=== PATIENT | male | born 1965 | race Caucasian/White ===

== ENCOUNTER 2020-12-08 09:20 | Inpatient (IN) | payer OTHER ==
[~2020-12-08] VITALS: Ht 167.6 cm; Wt 91.6 kg
[2020-12-08] MEDS ORDERED: PIPERACILLIN/TAZOBACTAM 3.375 GM in SODIUM CHLORIDE 0.9% 50ML 50 ML IV ONE (09:45)
[2020-12-08] MEDS ORDERED: SODIUM CHLORIDE 0.9% 1000ML 1,000 ML IV STA ×2 (09:45→09:55)
[2020-12-08] MEDS ORDERED: MORPHINE SULFATE INJ 4 MG/ML INJ 1ML IV NR (09:45)
[2020-12-08] MEDS ORDERED: Vancomycin IV 1 GM in SODIUM CHLORIDE 0.9% 250ML 250 ML IV ONE (10:00)
[2020-12-08] MEDS ORDERED: ONDANSETRON HCL INJ 2MG/ML 2ML 2 MG/ML VIAL IV NR (10:00)
[2020-12-08 10:18] LABS: BASOPHILS # (AUTO) 0.1 (0.0-0.1); BASOPHILS % 0.4 % (0.0-1.0); EOSINOPHILS # (AUTO) 0.1 (0.0-0.4); EOSINOPHILS % 0.4 % (0.0-6.0); HEMATOCRIT 38.4 % (38.2-49.6); LYMPHOCYTES # (AUTO) 2.7 (1.0-3.2); LYMPHOCYTES % 8.7 % (18.0-39.1); MEAN CORPUSCULAR HEMOGLOBIN 30.1 pg (28-32); MEAN CORPUSCULAR HGB CONC 33.9 g/dL (31-35); MEAN CORPUSCULAR VOLUME 88.9 fL (81-99); MONOCYTES # (AUTO) 2.2 (0.2-0.8); MONOCYTES % 7.2 % (4.4-11.3); NEUTROPHILS # (AUTO) 24.8 (2.1-6.9); NEUTROPHILS % 81.5 % (38.7-80.0); PLATELET COUNT 486 x10e3/uL (140-360); RED BLOOD COUNT 4.32 x10e6/uL (4.3-5.7); RED CELL DISTRIBUTION WIDTH 11.2 % (11.7-14.4)
[2020-12-08 10:45] LABS: PROTHROMBIN TIME 13.8 seconds (11.9-14.5)
[2020-12-08 11:13] LABS: LYMPHOCYTES % (MANUAL) 10 % (19-48); MONOCYTES % (MANUAL) 7 % (3.4-9.0); MYELOCYTES % (MANUAL) 1 % (0-0); NEUTROPHILS % (MANUAL) 82 % (40-74); PLATELET ESTIMATE SLIGHTLY INCREASED
[2020-12-08 11:14] LABS: PLATELET MORPHOLOGY COMMENT FEW LARGE; RBC MORPHOLOGY COMMENT NORMAL
[2020-12-08 11:27] LABS: ALBUMIN 3.1 g/dL (3.5-5.0); ALBUMIN/GLOBULIN RATIO 0.7 (0.8-2.0); ANION GAP 13.6 mmol/L (8-16); CALCIUM 9.3 mg/dL (8.4-10.2); CREATININE, SERUM 0.81 mg/dL (0.72-1.25); MAGNESIUM 1.9 MG/DL (1.3-2.1); POTASSIUM 3.6 mmol/L (3.5-5.1)
[2020-12-08 11:35] LABS: CREATINE KINASE MB 1.6 ng/mL (0-5.0)
[2020-12-08] MEDS ORDERED: DEXTROSE 50% SYRINGE 50 ML IV PRN (11:45)
[2020-12-08] MEDS ORDERED: DEXAMETHASONE SOD PHOS INJ 4 MG/ML VIAL ONE (12:27)
[2020-12-08] MEDS ORDERED: PROPOFOL IV EMULSION 10 MG/ML 20 ML VIAL ONE (12:27)
[2020-12-08] MEDS ORDERED: SEVOFLURANE INHAL SOLN 250 ML PEN BTL ONE (12:27)
[2020-12-08] MEDS ORDERED: ONDANSETRON HCL INJ 2MG/ML 2ML 2 MG/ML VIAL ONE (12:27)
[2020-12-08] MEDS ORDERED: LIDOCAINE HCL 2% LOCAL INJ 5 ML SDV VIAL INJ ONE (12:27)
[2020-12-08] MEDS ORDERED: POVIDONE IODINE 0.05% 0.05 % ML PO ONE (12:27)
[2020-12-08] MEDS ORDERED: KETOROLAC TROMETHAMINE 30 MG/ML VIAL ONE (12:27)
[2020-12-08] MEDS ORDERED: MIDAZOLAM HCL 2 MG/2 ML VIAL ONE (13:17)
[2020-12-08] MEDS ORDERED: FENTANYL CITRATE/PF 100MCG/2 ML INJ ONE (13:17)
[2020-12-08] MEDS: MORPHINE SULFATE INJ 4 MG/ML INJ 1ML IV PRN (13:44)
[2020-12-08 13:50] VITALS: BP 157/80
[2020-12-08 13:58] VITALS: BP 157/89
[2020-12-08] MEDS ORDERED: HYDROGEN PEROXIDE 120 ML BTL ONE (15:52)
[2020-12-08] MEDS: INSULIN LISPRO 100 UNIT/1 ML 3ML VIAL SQ SCH ×2 (16:30→21:00)
[2020-12-08 16:55] VITALS: BP 163/86
[2020-12-08] MEDS: CLINDAMYCIN 600MG / 50ML 50 ML IV SCH ×2 (17:08→21:29)
[2020-12-08] MEDS: LACTATED RINGER'S 1,000 ML INJ SCH (17:08)
[2020-12-08] MEDS ORDERED: ULTRAM50 MG PO (17:18)
[2020-12-08] MEDS ORDERED: ATORVASTATIN CA20 MG PO (17:18)
[2020-12-08] MEDS ORDERED: GLIPIZIDE5 MG PO (17:18)
[2020-12-08] MEDS ORDERED: METFORMIN HCL500 MG PO (17:18)
[2020-12-08] MEDS ORDERED: LOSARTAN POTASS25 MG PO (17:18)
[2020-12-08] MEDS ORDERED: ACETAMINOPHEN 325 MG TAB PO PRN (17:30)
[2020-12-08 17:31] VITALS: BP 163/86
[2020-12-08] MEDS ORDERED: DOCUSATE SODIUM 100 MG CAP PO PRN (17:45)
[2020-12-08] MEDS: LOSARTAN POTASSIUM 25 MG TAB PO SCH (17:49)
[2020-12-08] MEDS: ONDANSETRON HCL INJ 2MG/ML 2ML 2 MG/ML VIAL IV PRN (17:49)
[2020-12-08] MEDS: PIPERACILLIN/TAZOBACTAM 3.375 GM in SODIUM CHLORIDE 0.9% 50ML 50 ML IV SCH (17:50)
[2020-12-08 18:33] LABS: CHOL/HDL RATIO 3.6 (3.9-4.7)
[2020-12-08 20:00] VITALS: BP 157/83
[2020-12-08 20:11] VITALS: BP 163/86
[2020-12-08] MEDS: ATORVASTATIN 20 MG TAB PO SCH (21:27)
[2020-12-08] MEDS ORDERED: CLINDAMYCIN PHOS 900MG/ 50ML 50 ML IV SCH (22:00)
[2020-12-08] MEDS: HYDROCODONE/APAP 7.5MG-325MG 1 EA TAB PO PRN (22:16)
[2020-12-09] VITALS (10 sets, daily range): BP systolic 134–152; BP diastolic 77–82
[2020-12-09] MEDS: PIPERACILLIN/TAZOBACTAM 3.375 GM in SODIUM CHLORIDE 0.9% 50ML 50 ML IV SCH ×5 (00:56→23:54)
[2020-12-09] MEDS: LACTATED RINGER'S 1,000 ML INJ SCH ×3 (05:38→20:18)
[2020-12-09 05:41] LABS: BASOPHILS # (AUTO) 0.1 (0.0-0.1); BASOPHILS % 0.2 % (0.0-1.0); EOSINOPHILS % 0.1 % (0.0-6.0); HEMATOCRIT 30.2 % (38.2-49.6); HEMOGLOBIN 10.2 g/dL (14.0-18.0); LYMPHOCYTES # (AUTO) 1.6 (1.0-3.2); LYMPHOCYTES % 6.2 % (18.0-39.1); MEAN CORPUSCULAR HEMOGLOBIN 30.1 pg (28-32); MEAN CORPUSCULAR HGB CONC 33.8 g/dL (31-35); MEAN CORPUSCULAR VOLUME 89.1 fL (81-99); MONOCYTES # (AUTO) 1.4 (0.2-0.8); MONOCYTES % 5.5 % (4.4-11.3); NEUTROPHILS # (AUTO) 22.4 (2.1-6.9); NEUTROPHILS % 86.4 % (38.7-80.0); PLATELET COUNT 359 x10e3/uL (140-360); RED BLOOD COUNT 3.39 x10e6/uL (4.3-5.7); RED CELL DISTRIBUTION WIDTH 11.1 % (11.7-14.4)
[2020-12-09] MEDS: CLINDAMYCIN 600MG / 50ML 50 ML IV SCH ×3 (05:41→21:50)
[2020-12-09 06:18] LABS: ALBUMIN 2.3 g/dL (3.5-5.0); ALBUMIN/GLOBULIN RATIO 0.6 (0.8-2.0); ANION GAP 12.7 mmol/L (8-16); CALCIUM 8.7 mg/dL (8.4-10.2); CREATININE, SERUM 0.77 mg/dL (0.72-1.25); POTASSIUM 3.7 mmol/L (3.5-5.1)
[2020-12-09 08:08] LABS: BAND NEUTROPHILS % (MANUAL) 1 %; LYMPHOCYTES % (MANUAL) 8 % (19-48); MONOCYTES % (MANUAL) 3 % (3.4-9.0); NEUTROPHILS % (MANUAL) 88 % (40-74)
[2020-12-09 08:09] LABS: PLATELET ESTIMATE ADEQUATE; PLATELET MORPHOLOGY COMMENT NORMAL; RBC MORPHOLOGY COMMENT NORMAL
[2020-12-09] MEDS: LOSARTAN POTASSIUM 25 MG TAB PO SCH ×2 (08:26→17:02)
[2020-12-09] MEDS: HYDROCODONE/APAP 7.5MG-325MG 1 EA TAB PO PRN ×3 (08:33→22:37)
[2020-12-09] MEDS: INSULIN LISPRO 100 UNIT/1 ML 3ML VIAL SQ SCH ×4 (09:53→20:19)
[2020-12-09] MEDS ORDERED: TRAMADOL HCL 50 MG TAB PO PRN (13:30)
[2020-12-09] MEDS: ATORVASTATIN 20 MG TAB PO SCH (21:50)
[2020-12-09] MEDS: ZOLPIDEM TARTRATE 5 MG TAB PO PRN (22:37)
[2020-12-10] VITALS (9 sets, daily range): BP systolic 139–183; BP diastolic 70–86
[2020-12-10] MEDS: CLINDAMYCIN 600MG / 50ML 50 ML IV SCH (05:31)
[2020-12-10 06:29] LABS: BASOPHILS # (AUTO) 0.1 (0.0-0.1); BASOPHILS % 0.4 % (0.0-1.0); EOSINOPHILS # (AUTO) 0.2 (0.0-0.4); EOSINOPHILS % 0.8 % (0.0-6.0); HEMATOCRIT 31.7 % (38.2-49.6); HEMOGLOBIN 10.7 g/dL (14.0-18.0); LYMPHOCYTES # (AUTO) 2.8 (1.0-3.2); LYMPHOCYTES % 12.4 % (18.0-39.1); MEAN CORPUSCULAR HEMOGLOBIN 29.9 pg (28-32); MEAN CORPUSCULAR HGB CONC 33.8 g/dL (31-35); MEAN CORPUSCULAR VOLUME 88.5 fL (81-99); MONOCYTES # (AUTO) 1.1 (0.2-0.8); MONOCYTES % 5.1 % (4.4-11.3); NEUTROPHILS # (AUTO) 17.8 (2.1-6.9); PLATELET COUNT 343 x10e3/uL (140-360); RED BLOOD COUNT 3.58 x10e6/uL (4.3-5.7); RED CELL DISTRIBUTION WIDTH 11.2 % (11.7-14.4)
[2020-12-10] MEDS: PIPERACILLIN/TAZOBACTAM 3.375 GM in SODIUM CHLORIDE 0.9% 50ML 50 ML IV SCH ×4 (06:30→23:49)
[2020-12-10 07:06] LABS: ANION GAP 12.4 mmol/L (8-16); CALCIUM 8.5 mg/dL (8.4-10.2); CREATININE, SERUM 0.67 mg/dL (0.72-1.25); POTASSIUM 3.4 mmol/L (3.5-5.1)
[2020-12-10] MEDS: MORPHINE SULFATE INJ 4 MG/ML INJ 1ML IV PRN ×2 (09:30→18:52)
[2020-12-10] MEDS: LOSARTAN POTASSIUM 25 MG TAB PO SCH ×2 (09:32→16:24)
[2020-12-10] MEDS: LACTATED RINGER'S 1,000 ML INJ SCH ×2 (09:32→22:04)
[2020-12-10] MEDS: INSULIN LISPRO 100 UNIT/1 ML 3ML VIAL SQ SCH ×4 (09:33→20:19)
[2020-12-10] MEDS: HYDROCODONE/APAP 7.5MG-325MG 1 EA TAB PO PRN ×3 (11:32→20:33)
[2020-12-10] MEDS: Vancomycin IV 1 GM in SODIUM CHLORIDE 0.9% 250ML 250 ML IV SCH ×2 (12:51→21:23)
[2020-12-10] MEDS: ATORVASTATIN 20 MG TAB PO SCH (20:33)
[2020-12-11] VITALS (8 sets, daily range): BP systolic 160–181; BP diastolic 80–91
[2020-12-11] MEDS: Vancomycin IV 1 GM in SODIUM CHLORIDE 0.9% 250ML 250 ML IV SCH ×2 (00:57→09:21)
[2020-12-11] MEDS: PIPERACILLIN/TAZOBACTAM 3.375 GM in SODIUM CHLORIDE 0.9% 50ML 50 ML IV SCH ×2 (05:42→12:22)
[2020-12-11 08:37] LABS: BASOPHILS # (AUTO) 0.1 (0.0-0.1); BASOPHILS % 0.5 % (0.0-1.0); EOSINOPHILS # (AUTO) 0.2 (0.0-0.4); EOSINOPHILS % 0.9 % (0.0-6.0); HEMATOCRIT 32.4 % (38.2-49.6); HEMOGLOBIN 11.2 g/dL (14.0-18.0); LYMPHOCYTES # (AUTO) 1.8 (1.0-3.2); LYMPHOCYTES % 10.5 % (18.0-39.1); MEAN CORPUSCULAR HEMOGLOBIN 30.2 pg (28-32); MEAN CORPUSCULAR HGB CONC 34.6 g/dL (31-35); MEAN CORPUSCULAR VOLUME 87.3 fL (81-99); MONOCYTES # (AUTO) 0.9 (0.2-0.8); MONOCYTES % 5.3 % (4.4-11.3); NEUTROPHILS % 81.1 % (38.7-80.0); PLATELET COUNT 372 x10e3/uL (140-360); RED BLOOD COUNT 3.71 x10e6/uL (4.3-5.7); RED CELL DISTRIBUTION WIDTH 11.1 % (11.7-14.4)
[2020-12-11 09:01] LABS: ANION GAP 13.2 mmol/L (8-16); CALCIUM 8.8 mg/dL (8.4-10.2); CREATININE, SERUM 0.66 mg/dL (0.72-1.25); POTASSIUM 3.2 mmol/L (3.5-5.1)
[2020-12-11] MEDS: LACTATED RINGER'S 1,000 ML INJ SCH ×3 (09:19→21:13)
[2020-12-11] MEDS: INSULIN LISPRO 100 UNIT/1 ML 3ML VIAL SQ SCH ×4 (09:20→20:56)
[2020-12-11] MEDS: METOPROLOL TARTRATE 25 MG TAB PO SCH ×2 (09:21→17:01)
[2020-12-11] MEDS: LOSARTAN POTASSIUM 25 MG TAB PO SCH ×2 (09:21→17:00)
[2020-12-11] MEDS: ONDANSETRON HCL INJ 2MG/ML 2ML 2 MG/ML VIAL IV PRN ×3 (09:22→21:23)
[2020-12-11] MEDS: MORPHINE SULFATE INJ 4 MG/ML INJ 1ML IV PRN ×3 (09:22→21:23)
[2020-12-11] MEDS: METRONIDAZOLE 500MG/NS 100ML 100 ML IV SCH ×2 (14:10→21:02)
[2020-12-11] MEDS: ATORVASTATIN 20 MG TAB PO SCH (21:00)
[2020-12-11] MEDS: ZOLPIDEM TARTRATE 5 MG TAB PO PRN (21:23)
[2020-12-12 01:22] VITALS: BP 134/66
[2020-12-12] MEDS: METRONIDAZOLE 500MG/NS 100ML 100 ML IV SCH ×3 (05:01→21:34)
[2020-12-12 06:12] VITALS: BP 156/83
[2020-12-12 06:52] LABS: BASOPHILS # (AUTO) 0.1 (0.0-0.1); BASOPHILS % 0.5 % (0.0-1.0); EOSINOPHILS # (AUTO) 0.2 (0.0-0.4); EOSINOPHILS % 1.3 % (0.0-6.0); HEMATOCRIT 31.8 % (38.2-49.6); HEMOGLOBIN 10.7 g/dL (14.0-18.0); LYMPHOCYTES % 14.1 % (18.0-39.1); MEAN CORPUSCULAR HEMOGLOBIN 29.5 pg (28-32); MEAN CORPUSCULAR HGB CONC 33.6 g/dL (31-35); MEAN CORPUSCULAR VOLUME 87.6 fL (81-99); MONOCYTES % 7.1 % (4.4-11.3); NEUTROPHILS # (AUTO) 10.6 (2.1-6.9); NEUTROPHILS % 74.9 % (38.7-80.0); PLATELET COUNT 351 x10e3/uL (140-360); RED BLOOD COUNT 3.63 x10e6/uL (4.3-5.7); RED CELL DISTRIBUTION WIDTH 11.1 % (11.7-14.4)
[2020-12-12] MEDS ORDERED: LOPRESSOR25 MG PO (07:40)
[2020-12-12] MEDS ORDERED: FLAGYL500 MG PO (07:40)
[2020-12-12] MEDS ORDERED: KEFLEX125 MG/5 M PO (07:40)
[2020-12-12] MEDS ORDERED: GABAPENTIN100 MG PO (07:41)
[2020-12-12] MEDS ORDERED: TYLENOL325 MG PO (07:41)
[2020-12-12] MEDS: HYDROCODONE/APAP 7.5MG-325MG 1 EA TAB PO PRN (08:39)
[2020-12-12] MEDS: CEFTRIAXONE 1 GM in SODIUM CHLORIDE 0.9% 50ML 50 ML IV SCH (08:44)
[2020-12-12] MEDS: LOSARTAN POTASSIUM 25 MG TAB PO SCH ×2 (08:45→17:00)
[2020-12-12] MEDS: METOPROLOL TARTRATE 25 MG TAB PO SCH ×2 (08:45→17:00)
[2020-12-12] MEDS: LACTATED RINGER'S 1,000 ML INJ SCH ×2 (08:45→23:10)
[2020-12-12] MEDS: INSULIN LISPRO 100 UNIT/1 ML 3ML VIAL SQ SCH ×4 (08:50→21:00)
[2020-12-12 09:23] VITALS: BP 158/88
[2020-12-12] MEDS: ONDANSETRON HCL INJ 2MG/ML 2ML 2 MG/ML VIAL IV PRN ×3 (11:18→21:35)
[2020-12-12] MEDS: MORPHINE SULFATE INJ 4 MG/ML INJ 1ML IV PRN ×3 (11:18→21:35)
[2020-12-12 11:37] VITALS: BP 132/110
[2020-12-12 16:08] VITALS: BP 179/85
[2020-12-12 20:00] VITALS: BP_SYST 173; BP_SYST 179; BP_DIAS 85; BP_DIAS 86
[2020-12-12] MEDS: ATORVASTATIN 20 MG TAB PO SCH (21:00)
[2020-12-12] MEDS: ZOLPIDEM TARTRATE 5 MG TAB PO PRN (21:35)
[2020-12-13] VITALS (9 sets, daily range): BP systolic 154–185; BP diastolic 78–94
[2020-12-13] MEDS: METRONIDAZOLE 500MG/NS 100ML 100 ML IV SCH ×3 (05:10→21:19)
[2020-12-13] MEDS: ONDANSETRON HCL INJ 2MG/ML 2ML 2 MG/ML VIAL IV PRN ×2 (05:10→18:30)
[2020-12-13] MEDS: MORPHINE SULFATE INJ 4 MG/ML INJ 1ML IV PRN ×3 (05:10→22:10)
[2020-12-13] MEDS: INSULIN LISPRO 100 UNIT/1 ML 3ML VIAL SQ SCH ×4 (07:30→21:00)
[2020-12-13] MEDS: CEFTRIAXONE 1 GM in SODIUM CHLORIDE 0.9% 50ML 50 ML IV SCH (08:25)
[2020-12-13] MEDS: LACTATED RINGER'S 1,000 ML INJ SCH ×3 (08:29→22:13)
[2020-12-13] MEDS: LOSARTAN POTASSIUM 25 MG TAB PO SCH ×2 (09:07→18:12)
[2020-12-13] MEDS: METOPROLOL TARTRATE 25 MG TAB PO SCH ×2 (09:08→18:13)
[2020-12-13 10:37] LABS: BASOPHILS # (AUTO) 0.1 (0.0-0.1); BASOPHILS % 0.6 % (0.0-1.0); EOSINOPHILS # (AUTO) 0.2 (0.0-0.4); EOSINOPHILS % 1.4 % (0.0-6.0); HEMATOCRIT 34.5 % (38.2-49.6); HEMOGLOBIN 11.8 g/dL (14.0-18.0); LYMPHOCYTES # (AUTO) 2.2 (1.0-3.2); LYMPHOCYTES % 19.6 % (18.0-39.1); MEAN CORPUSCULAR HGB CONC 34.2 g/dL (31-35); MEAN CORPUSCULAR VOLUME 87.8 fL (81-99); MONOCYTES # (AUTO) 0.8 (0.2-0.8); NEUTROPHILS % 69.6 % (38.7-80.0); PLATELET COUNT 391 x10e3/uL (140-360); RED BLOOD COUNT 3.93 x10e6/uL (4.3-5.7); RED CELL DISTRIBUTION WIDTH 11.2 % (11.7-14.4)
[2020-12-13] MEDS ORDERED: FENTANYL CITRATE/PF 100MCG/2 ML INJ ONE (13:15)
[2020-12-13] MEDS ORDERED: MIDAZOLAM HCL 2 MG/2 ML VIAL ONE (13:15)
[2020-12-13] MEDS ORDERED: ONDANSETRON HCL INJ 2MG/ML 2ML 2 MG/ML VIAL ONE (19:40)
[2020-12-13] MEDS ORDERED: POVIDONE IODINE 0.05% 0.05 % ML PO ONE (19:40)
[2020-12-13] MEDS ORDERED: LIDOCAINE HCL 2% LOCAL INJ 5 ML SDV VIAL INJ ONE (19:40)
[2020-12-13] MEDS ORDERED: PROPOFOL IV EMULSION 10 MG/ML 20 ML VIAL ONE (19:40)
[2020-12-13] MEDS ORDERED: KETOROLAC TROMETHAMINE 30 MG/ML VIAL ONE (19:40)
[2020-12-13] MEDS ORDERED: SEVOFLURANE INHAL SOLN 250 ML PEN BTL ONE (19:40)
[2020-12-13] MEDS ORDERED: DEXAMETHASONE SOD PHOS INJ 4 MG/ML VIAL ONE (19:40)
[2020-12-13] MEDS: ATORVASTATIN 20 MG TAB PO SCH (21:00)
[2020-12-14] VITALS (9 sets, daily range): BP systolic 161–181; BP diastolic 84–95
[2020-12-14] MEDS ORDERED: ZOLPIDEM TARTRATE 5 MG TAB PO PRN (01:00)
[2020-12-14] MEDS: MORPHINE SULFATE INJ 4 MG/ML INJ 1ML IV PRN ×3 (02:23→23:00)
[2020-12-14] MEDS: ONDANSETRON HCL INJ 2MG/ML 2ML 2 MG/ML VIAL IV PRN ×2 (02:23→23:00)
[2020-12-14] MEDS: METRONIDAZOLE 500MG/NS 100ML 100 ML IV SCH ×2 (05:28→13:58)
[2020-12-14 06:19] LABS: BASOPHILS # (AUTO) 0.1 (0.0-0.1); BASOPHILS % 0.4 % (0.0-1.0); EOSINOPHILS # (AUTO) 0.1 (0.0-0.4); EOSINOPHILS % 0.4 % (0.0-6.0); HEMATOCRIT 34.1 % (38.2-49.6); HEMOGLOBIN 11.5 g/dL (14.0-18.0); LYMPHOCYTES # (AUTO) 2.4 (1.0-3.2); LYMPHOCYTES % 19.7 % (18.0-39.1); MEAN CORPUSCULAR HEMOGLOBIN 29.5 pg (28-32); MEAN CORPUSCULAR HGB CONC 33.7 g/dL (31-35); MEAN CORPUSCULAR VOLUME 87.4 fL (81-99); MONOCYTES # (AUTO) 0.9 (0.2-0.8); MONOCYTES % 7.1 % (4.4-11.3); NEUTROPHILS # (AUTO) 8.5 (2.1-6.9); NEUTROPHILS % 70.5 % (38.7-80.0); PLATELET COUNT 426 x10e3/uL (140-360); RED CELL DISTRIBUTION WIDTH 11.3 % (11.7-14.4)
[2020-12-14 06:49] LABS: ANION GAP 13.4 mmol/L (8-16); CALCIUM 8.2 mg/dL (8.4-10.2); CREATININE, SERUM 0.75 mg/dL (0.72-1.25); POTASSIUM 3.4 mmol/L (3.5-5.1)
[2020-12-14] MEDS: CEFTRIAXONE 1 GM in SODIUM CHLORIDE 0.9% 50ML 50 ML IV SCH (08:47)
[2020-12-14] MEDS: METOPROLOL TARTRATE 25 MG TAB PO SCH (08:47)
[2020-12-14] MEDS: LOSARTAN POTASSIUM 25 MG TAB PO SCH ×2 (08:47→17:43)
[2020-12-14] MEDS: INSULIN LISPRO 100 UNIT/1 ML 3ML VIAL SQ SCH ×4 (10:26→21:27)
[2020-12-14] MEDS ORDERED: SODIUM CHLORIDE 0.9% 50ML 50 ML ONE (13:50)
[2020-12-14] MEDS ORDERED: POTASSIUM CHLORIDE 20 MEQ TAB CR PO ONE (15:30)
[2020-12-14] MEDS: METOPROLOL TARTRATE 50 MG TAB PO SCH ×2 (16:14→17:43)
[2020-12-14] MEDS: ATORVASTATIN 20 MG TAB PO SCH (21:20)
[2020-12-14] MEDS: Cefazolin 1 GM in SODIUM CHLORIDE 0.9% 50ML 50 ML IV SCH (21:21)
[2020-12-15] VITALS (10 sets, daily range): BP systolic 160–175; BP diastolic 86–93
[2020-12-15] MEDS: ONDANSETRON HCL INJ 2MG/ML 2ML 2 MG/ML VIAL IV PRN ×2 (03:11→22:30)
[2020-12-15] MEDS: MORPHINE SULFATE INJ 4 MG/ML INJ 1ML IV PRN ×4 (03:11→22:30)
[2020-12-15] MEDS: Cefazolin 1 GM in SODIUM CHLORIDE 0.9% 50ML 50 ML IV SCH ×3 (05:38→21:52)
[2020-12-15 07:38] LABS: CALCIUM 8.6 mg/dL (8.4-10.2); CREATININE, SERUM 0.79 mg/dL (0.72-1.25)
[2020-12-15] MEDS: METOPROLOL TARTRATE 50 MG TAB PO SCH ×2 (08:11→17:04)
[2020-12-15] MEDS: LOSARTAN POTASSIUM 25 MG TAB PO SCH ×2 (08:11→17:04)
[2020-12-15 08:53] LABS: BASOPHILS # (AUTO) 0.1 (0.0-0.1); BASOPHILS % 0.6 % (0.0-1.0); EOSINOPHILS # (AUTO) 0.2 (0.0-0.4); EOSINOPHILS % 1.5 % (0.0-6.0); HEMATOCRIT 36.8 % (38.2-49.6); HEMOGLOBIN 12.4 g/dL (14.0-18.0); LYMPHOCYTES # (AUTO) 2.9 (1.0-3.2); LYMPHOCYTES % 23.3 % (18.0-39.1); MEAN CORPUSCULAR HEMOGLOBIN 29.7 pg (28-32); MEAN CORPUSCULAR HGB CONC 33.7 g/dL (31-35); MONOCYTES # (AUTO) 0.9 (0.2-0.8); NEUTROPHILS # (AUTO) 8.3 (2.1-6.9); NEUTROPHILS % 65.9 % (38.7-80.0); PLATELET COUNT 442 x10e3/uL (140-360); RED BLOOD COUNT 4.18 x10e6/uL (4.3-5.7); RED CELL DISTRIBUTION WIDTH 11.4 % (11.7-14.4)
[2020-12-15] MEDS: INSULIN LISPRO 100 UNIT/1 ML 3ML VIAL SQ SCH ×4 (09:16→21:30)
[2020-12-15] MEDS: HYDROCODONE/APAP 7.5MG-325MG 1 EA TAB PO PRN (14:14)
[2020-12-15] MEDS ORDERED: HYDROCODONE/APAP 7.5MG-325MG 1 EA TAB PO PRN (18:30)
[2020-12-15] MEDS: ATORVASTATIN 20 MG TAB PO SCH (21:52)
[2020-12-16] VITALS (7 sets, daily range): BP systolic 130–184; BP diastolic 74–97
[2020-12-16] MEDS: MORPHINE SULFATE INJ 4 MG/ML INJ 1ML IV PRN ×5 (02:45→20:26)
[2020-12-16] MEDS: Cefazolin 1 GM in SODIUM CHLORIDE 0.9% 50ML 50 ML IV SCH ×3 (06:14→22:14)
[2020-12-16] MEDS: INSULIN LISPRO 100 UNIT/1 ML 3ML VIAL SQ SCH ×4 (07:30→21:00)
[2020-12-16] MEDS: ONDANSETRON HCL INJ 2MG/ML 2ML 2 MG/ML VIAL IV PRN ×3 (07:50→16:20)
[2020-12-16 08:44] LABS: BASOPHILS # (AUTO) 0.1 (0.0-0.1); BASOPHILS % 0.7 % (0.0-1.0); EOSINOPHILS # (AUTO) 0.2 (0.0-0.4); EOSINOPHILS % 1.6 % (0.0-6.0); HEMATOCRIT 36.4 % (38.2-49.6); HEMOGLOBIN 12.4 g/dL (14.0-18.0); LYMPHOCYTES # (AUTO) 2.5 (1.0-3.2); LYMPHOCYTES % 21.9 % (18.0-39.1); MEAN CORPUSCULAR HGB CONC 34.1 g/dL (31-35); MEAN CORPUSCULAR VOLUME 87.9 fL (81-99); MONOCYTES # (AUTO) 0.8 (0.2-0.8); MONOCYTES % 6.6 % (4.4-11.3); NEUTROPHILS # (AUTO) 7.7 (2.1-6.9); NEUTROPHILS % 67.8 % (38.7-80.0); PLATELET COUNT 476 x10e3/uL (140-360); RED BLOOD COUNT 4.14 x10e6/uL (4.3-5.7); RED CELL DISTRIBUTION WIDTH 11.5 % (11.7-14.4)
[2020-12-16] MEDS: LOSARTAN POTASSIUM 25 MG TAB PO SCH ×2 (09:00→16:35)
[2020-12-16] MEDS: METOPROLOL TARTRATE 50 MG TAB PO SCH ×2 (09:00→16:35)
[2020-12-16 09:02] LABS: ANION GAP 13.9 mmol/L (8-16); CALCIUM 9.1 mg/dL (8.4-10.2); CREATININE, SERUM 0.76 mg/dL (0.72-1.25); POTASSIUM 3.9 mmol/L (3.5-5.1)
[2020-12-16] MEDS: NIFEDIPINE CR 30 MG TAB PO SCH ×2 (13:30→20:21)
[2020-12-16] MEDS: ATORVASTATIN 20 MG TAB PO SCH (20:20)
[2020-12-16] MEDS ORDERED: SODIUM CHLORIDE 0.9% 250ML 250 ML ONE (22:17)
[2020-12-17] VITALS (7 sets, daily range): BP systolic 132–145; BP diastolic 68–88
[2020-12-17] MEDS: MORPHINE SULFATE INJ 4 MG/ML INJ 1ML IV PRN ×5 (00:30→20:45)
[2020-12-17] MEDS: Cefazolin 1 GM in SODIUM CHLORIDE 0.9% 50ML 50 ML IV SCH ×3 (06:12→22:55)
[2020-12-17] MEDS: INSULIN LISPRO 100 UNIT/1 ML 3ML VIAL SQ SCH ×4 (07:30→21:55)
[2020-12-17] MEDS: NIFEDIPINE CR 30 MG TAB PO SCH ×2 (08:41→21:55)
[2020-12-17] MEDS: METOPROLOL TARTRATE 50 MG TAB PO SCH ×2 (08:42→17:17)
[2020-12-17] MEDS: LOSARTAN POTASSIUM 25 MG TAB PO SCH ×2 (08:42→17:17)
[2020-12-17 14:06] LABS: BASOPHILS # (AUTO) 0.1 (0.0-0.1); BASOPHILS % 0.6 % (0.0-1.0); EOSINOPHILS # (AUTO) 0.1 (0.0-0.4); EOSINOPHILS % 0.8 % (0.0-6.0); HEMATOCRIT 38.4 % (38.2-49.6); HEMOGLOBIN 12.6 g/dL (14.0-18.0); LYMPHOCYTES # (AUTO) 3.1 (1.0-3.2); LYMPHOCYTES % 23.1 % (18.0-39.1); MEAN CORPUSCULAR HEMOGLOBIN 29.4 pg (28-32); MEAN CORPUSCULAR HGB CONC 32.8 g/dL (31-35); MEAN CORPUSCULAR VOLUME 89.5 fL (81-99); MONOCYTES # (AUTO) 0.8 (0.2-0.8); PLATELET COUNT 516 x10e3/uL (140-360); RED BLOOD COUNT 4.29 x10e6/uL (4.3-5.7); RED CELL DISTRIBUTION WIDTH 11.9 % (11.7-14.4)
[2020-12-17] MEDS: ATORVASTATIN 20 MG TAB PO SCH (21:55)
[2020-12-18] VITALS (8 sets, daily range): BP systolic 122–157; BP diastolic 75–84
[2020-12-18] MEDS: MORPHINE SULFATE INJ 4 MG/ML INJ 1ML IV PRN ×4 (01:03→15:50)
[2020-12-18] MEDS: Cefazolin 1 GM in SODIUM CHLORIDE 0.9% 50ML 50 ML IV SCH ×2 (06:00→14:33)
[2020-12-18] MEDS: LOSARTAN POTASSIUM 25 MG TAB PO SCH ×2 (08:40→17:11)
[2020-12-18] MEDS: METOPROLOL TARTRATE 50 MG TAB PO SCH ×2 (08:41→17:11)
[2020-12-18] MEDS: NIFEDIPINE CR 30 MG TAB PO SCH (08:41)
[2020-12-18] MEDS: INSULIN LISPRO 100 UNIT/1 ML 3ML VIAL SQ SCH ×3 (09:59→17:15)
[2020-12-18] MEDS ORDERED: ONDANSETRON HCL 4 MG ORAL DISINTEGRATING TAB PO PRN (19:15)
== END 2020-12-18 19:51 | disposition home or self-care (01) | DRG 854 ==
LOC: ER 09:44 → ERHOLD 11:52 → MED/SURG2 14:21
PROVIDERS: ADMIT Internal Medicine; ATTEND Internal Medicine
PROC: 0J9P00Z Drainage of Left Lower Leg Subcutaneous Tissue and Fascia with Drainage Device, Open Approach (ICD-10-PCS; 2020-12-08)
PROC: 0LBP0ZZ Excision of Left Lower Leg Tendon, Open Approach (ICD-10-PCS; principal; 2020-12-13 15:27)
DX: A41.9 Sepsis, unspecified organism (principal); L02.416 Cutaneous abscess of left lower limb; I96 Gangrene, not elsewhere classified; E11.52 Type 2 diabetes mellitus with diabetic peripheral angiopathy with gangrene; Z79.899 Other long term (current) drug therapy; G89.29 Other chronic pain; B95.61 Methicillin susceptible Staphylococcus aureus infection as the cause of diseases classified elsewhere; I10 Essential (primary) hypertension; E66.9 Obesity, unspecified; Z68.32 Body mass index [BMI] 32.0-32.9, adult; E87.6 Hypokalemia; Z20.822 Contact with and (suspected) exposure to COVID-19; G89.4 Chronic pain syndrome
CPT/HCPCS: 36415; 71045; 80048; 80053; 80061; 80202; 82550; 82553; 82948; 83036; 83605; 83735; 84484; 85025; 85610; 85730; 87040; 87071; 87075; 87186; 87205; 93005; 97139; 99251; 99284; J0690; J0696; J1100; J1885; J2001; J2250; J2270; J2405; J2543; J3010; J3370; J7030; J7050; J7121; U0002

== ENCOUNTER 2021-01-10 22:11 | Inpatient (IN) | payer OTHER ==
[~2021-01-10] VITALS: Ht 167.6 cm; Wt 88.6 kg
[~2021-01-10 22:11] MED LIST: ATORVASTATIN CA20 MG PO; FLAGYL500 MG PO; GABAPENTIN100 MG PO; GLIPIZIDE5 MG PO; KEFLEX125 MG/5 M PO; LOPRESSOR25 MG PO; LOSARTAN POTASS25 MG PO; METFORMIN HCL500 MG PO; TYLENOL325 MG PO; ULTRAM50 MG PO
[2021-01-10] MEDS ORDERED: SODIUM CHLORIDE 0.9% 1000ML 1,000 ML IV SCH (22:30)
[2021-01-10] MEDS ORDERED: ACETAMINOPHEN 325 MG TAB PO ONE (22:30)
[2021-01-10] MEDS ORDERED: Vancomycin IV 1 GM in SODIUM CHLORIDE 0.9% 250ML 250 ML IV ONE (22:30)
[2021-01-10] MEDS ORDERED: CEFEPIME 1 GM in SODIUM CHLORIDE 0.9% 50ML 50 ML IV ONE (22:30)
[2021-01-10 22:45] LABS: BASOPHILS # (AUTO) 0.1 (0.0-0.1); BASOPHILS % 0.6 % (0.0-1.0); EOSINOPHILS # (AUTO) 0.1 (0.0-0.4); HEMATOCRIT 41.3 % (38.2-49.6); HEMOGLOBIN 13.6 g/dL (14.0-18.0); MEAN CORPUSCULAR HEMOGLOBIN 29.4 pg (28-32); MEAN CORPUSCULAR HGB CONC 32.9 g/dL (31-35); MEAN CORPUSCULAR VOLUME 89.4 fL (81-99); MONOCYTES # (AUTO) 1.1 (0.2-0.8); MONOCYTES % 9.7 % (4.4-11.3); NEUTROPHILS # (AUTO) 5.2 (2.1-6.9); NEUTROPHILS % 45.3 % (38.7-80.0); PLATELET COUNT 353 x10e3/uL (140-360); RED BLOOD COUNT 4.62 x10e6/uL (4.3-5.7); RED CELL DISTRIBUTION WIDTH 12.8 % (11.7-14.4)
[2021-01-10 23:00] LABS: ALBUMIN 4.5 g/dL (3.5-5.0); ALBUMIN/GLOBULIN RATIO 1.3 (0.8-2.0); ANION GAP 20.9 mmol/L (8-16); CALCIUM 10.1 mg/dL (8.4-10.2); CREATININE, SERUM 1.4 mg/dL (0.72-1.25); POTASSIUM 3.9 mmol/L (3.5-5.1)
[2021-01-10] MEDS ORDERED: ONDANSETRON HCL INJ 2MG/ML 2ML 2 MG/ML VIAL IV PRN (23:45)
[2021-01-10] MEDS ORDERED: DEXTROSE 50% SYRINGE 50 ML IV PRN (23:45)
[2021-01-10] MEDS ORDERED: Vancomycin IV 1 GM in SODIUM CHLORIDE 0.9% 250ML 250 ML IV SCH (23:45)
[2021-01-11] VITALS (11 sets, daily range): BP systolic 157–171; BP diastolic 82–99
[2021-01-11] MEDS: SODIUM CHLORIDE 0.9% 1000ML 1,000 ML IV SCH ×2 (02:30→12:58)
[2021-01-11] MEDS: MORPHINE SULFATE INJ 4 MG/ML INJ 1ML IV PRN ×5 (02:31→22:56)
[2021-01-11] MEDS ORDERED: ONDANSETRON HCL INJ 2MG/ML 2ML 2 MG/ML VIAL IV PRN (04:00)
[2021-01-11] MEDS: CEFEPIME 1 GM in SODIUM CHLORIDE 0.9% 50ML 50 ML IV SCH ×3 (06:07→22:55)
[2021-01-11] MEDS ORDERED: Vancomycin IV 1 GM in SODIUM CHLORIDE 0.9% 250ML 250 ML IV SCH (07:00)
[2021-01-11] MEDS: INSULIN REGULAR, HUMAN 100 UNIT/1 ML SQ SCH ×4 (07:30→21:00)
[2021-01-11 07:39] LABS: BASOPHILS # (AUTO) 0.1 (0.0-0.1); BASOPHILS % 0.8 % (0.0-1.0); EOSINOPHILS # (AUTO) 0.2 (0.0-0.4); EOSINOPHILS % 2.2 % (0.0-6.0); HEMATOCRIT 37.6 % (38.2-49.6); HEMOGLOBIN 12.4 g/dL (14.0-18.0); LYMPHOCYTES # (AUTO) 4.1 (1.0-3.2); LYMPHOCYTES % 42.5 % (18.0-39.1); MEAN CORPUSCULAR HEMOGLOBIN 29.5 pg (28-32); MEAN CORPUSCULAR VOLUME 89.5 fL (81-99); MONOCYTES # (AUTO) 0.9 (0.2-0.8); MONOCYTES % 9.3 % (4.4-11.3); NEUTROPHILS # (AUTO) 4.3 (2.1-6.9); NEUTROPHILS % 44.8 % (38.7-80.0); PLATELET COUNT 283 x10e3/uL (140-360); RED CELL DISTRIBUTION WIDTH 12.8 % (11.7-14.4)
[2021-01-11 08:02] LABS: ALBUMIN 3.8 g/dL (3.5-5.0); ALBUMIN/GLOBULIN RATIO 1.3 (0.8-2.0); ANION GAP 13.8 mmol/L (8-16); CALCIUM 9.1 mg/dL (8.4-10.2); CREATININE, SERUM 0.93 mg/dL (0.72-1.25); POTASSIUM 3.8 mmol/L (3.5-5.1)
[2021-01-11] MEDS: Vancomycin IV 1.5 GM in SODIUM CHLORIDE 0.9% 250ML 250 ML IV SCH ×2 (09:40→20:56)
[2021-01-11] MEDS ORDERED: TRAMADOL HCL 50 MG TAB PO PRN (13:30)
[2021-01-11] MEDS: GABAPENTIN 100 MG CAP PO SCH ×2 (15:20→22:33)
[2021-01-11] MEDS: ENOXAPARIN SOD INJ 40 MG/0.4 ML SYR SC SCH (16:22)
[2021-01-11] MEDS: GLIPIZIDE 5 MG TAB PO SCH (16:22)
[2021-01-11] MEDS: LOSARTAN POTASSIUM 25 MG TAB PO SCH (16:32)
[2021-01-11] MEDS: METOPROLOL TARTRATE 25 MG TAB PO SCH (16:32)
[2021-01-11] MEDS: ATORVASTATIN 20 MG TAB PO SCH (20:57)
[2021-01-12] VITALS (8 sets, daily range): BP systolic 159–178; BP diastolic 83–93
[2021-01-12] MEDS: SODIUM CHLORIDE 0.9% 1000ML 1,000 ML IV SCH ×3 (02:00→19:32)
[2021-01-12] MEDS ORDERED: ACETAMINOPHEN 325 MG TAB PO PRN (02:30)
[2021-01-12] MEDS: MORPHINE SULFATE INJ 4 MG/ML INJ 1ML IV PRN ×4 (05:29→21:39)
[2021-01-12] MEDS: CEFEPIME 1 GM in SODIUM CHLORIDE 0.9% 50ML 50 ML IV SCH ×3 (06:01→22:50)
[2021-01-12] MEDS: GABAPENTIN 100 MG CAP PO SCH ×3 (06:02→21:38)
[2021-01-12 06:45] LABS: BASOPHILS # (AUTO) 0.1 (0.0-0.1); BASOPHILS % 0.7 % (0.0-1.0); EOSINOPHILS # (AUTO) 0.2 (0.0-0.4); EOSINOPHILS % 2.4 % (0.0-6.0); HEMATOCRIT 38.7 % (38.2-49.6); HEMOGLOBIN 12.8 g/dL (14.0-18.0); LYMPHOCYTES # (AUTO) 2.7 (1.0-3.2); LYMPHOCYTES % 30.8 % (18.0-39.1); MEAN CORPUSCULAR HEMOGLOBIN 29.6 pg (28-32); MEAN CORPUSCULAR HGB CONC 33.1 g/dL (31-35); MEAN CORPUSCULAR VOLUME 89.6 fL (81-99); MONOCYTES # (AUTO) 0.8 (0.2-0.8); NEUTROPHILS # (AUTO) 5.1 (2.1-6.9); NEUTROPHILS % 56.8 % (38.7-80.0); PLATELET COUNT 276 x10e3/uL (140-360); RED BLOOD COUNT 4.32 x10e6/uL (4.3-5.7); RED CELL DISTRIBUTION WIDTH 12.2 % (11.7-14.4)
[2021-01-12 07:22] LABS: MAGNESIUM 1.8 MG/DL (1.3-2.1); PHOSPHORUS 3.5 MG/DL (2.3-4.7)
[2021-01-12 07:23] LABS: ANION GAP 14.9 mmol/L (8-16); CALCIUM 9.2 mg/dL (8.4-10.2); CREATININE, SERUM 0.7 mg/dL (0.72-1.25); POTASSIUM 3.9 mmol/L (3.5-5.1)
[2021-01-12] MEDS: INSULIN REGULAR, HUMAN 100 UNIT/1 ML SQ SCH ×4 (07:30→21:00)
[2021-01-12 07:47] LABS: THYROID STIMULATING HORMONE 2.265 uIU/mL (0.350-4.940)
[2021-01-12] MEDS: METOPROLOL TARTRATE 25 MG TAB PO SCH ×2 (10:03→16:45)
[2021-01-12] MEDS: GLIPIZIDE 5 MG TAB PO SCH ×2 (10:04→16:44)
[2021-01-12] MEDS: LOSARTAN POTASSIUM 25 MG TAB PO SCH ×2 (10:04→16:45)
[2021-01-12] MEDS: Vancomycin IV 1.5 GM in SODIUM CHLORIDE 0.9% 250ML 250 ML IV SCH (13:43)
[2021-01-12] MEDS: ENOXAPARIN SOD INJ 40 MG/0.4 ML SYR SC SCH ×2 (16:46→16:52)
[2021-01-12] MEDS: ATORVASTATIN 20 MG TAB PO SCH (21:38)
[2021-01-13] VITALS (9 sets, daily range): BP systolic 119–192; BP diastolic 78–92
[2021-01-13] MEDS: MORPHINE SULFATE INJ 4 MG/ML INJ 1ML IV PRN ×4 (01:53→22:22)
[2021-01-13] MEDS: CEFEPIME 1 GM in SODIUM CHLORIDE 0.9% 50ML 50 ML IV SCH ×3 (05:33→22:21)
[2021-01-13] MEDS: GABAPENTIN 100 MG CAP PO SCH ×3 (05:33→20:34)
[2021-01-13] MEDS: INSULIN REGULAR, HUMAN 100 UNIT/1 ML SQ SCH ×4 (07:30→20:33)
[2021-01-13] MEDS: GLIPIZIDE 5 MG TAB PO SCH ×2 (08:55→18:01)
[2021-01-13] MEDS: LOSARTAN POTASSIUM 25 MG TAB PO SCH ×2 (08:56→18:01)
[2021-01-13] MEDS: METOPROLOL TARTRATE 25 MG TAB PO SCH ×2 (08:56→18:02)
[2021-01-13] MEDS ORDERED: Vancomycin IV 1.25 GM in SODIUM CHLORIDE 0.9% 250ML 250 ML IV SCH (09:00)
[2021-01-13] MEDS ORDERED: NIFEDIPINE CR 30 MG TAB PO ONE (11:00)
[2021-01-13] MEDS: ENOXAPARIN SOD INJ 40 MG/0.4 ML SYR SC SCH (17:00)
[2021-01-13] MEDS: ATORVASTATIN 20 MG TAB PO SCH (20:34)
[2021-01-14 00:18] VITALS: BP 114/64
[2021-01-14] MEDS: MORPHINE SULFATE INJ 4 MG/ML INJ 1ML IV PRN (03:09)
[2021-01-14 05:04] VITALS: BP 133/67
[2021-01-14] MEDS: GABAPENTIN 100 MG CAP PO SCH (06:00)
[2021-01-14] MEDS: CEFEPIME 1 GM in SODIUM CHLORIDE 0.9% 50ML 50 ML IV SCH (06:10)
[2021-01-14] MEDS: INSULIN REGULAR, HUMAN 100 UNIT/1 ML SQ SCH ×2 (07:30→12:53)
[2021-01-14 08:00] VITALS: BP 139/86
[2021-01-14] MEDS: GLIPIZIDE 5 MG TAB PO SCH (08:00)
[2021-01-14] MEDS: LOSARTAN POTASSIUM 25 MG TAB PO SCH (08:37)
[2021-01-14] MEDS: METOPROLOL TARTRATE 25 MG TAB PO SCH (08:37)
[2021-01-14] MEDS ORDERED: NIFEDIPINE CR 30 MG TAB PO SCH (09:00)
[2021-01-14] MEDS ORDERED: NEOSTIGMINE 1 MG/ML 10ML VIAL ONE (09:16)
[2021-01-14 11:32] VITALS: BP 115/76
[2021-01-14 11:33] VITALS: BP 115/76
[2021-01-14 12:00] VITALS: BP 147/87
== END 2021-01-14 17:19 | disposition home or self-care (01) | DRG 854 ==
LOC: ER 22:44 → ERHOLD 23:42 → MED/SURG3 01-11 01:55
PROVIDERS: ADMIT Internal Medicine; ATTEND Internal Medicine
PROC: 02HV33Z Insertion of Infusion Device into Superior Vena Cava, Percutaneous Approach (ICD-10-PCS; 2021-01-13)
PROC: 0JBP0ZZ Excision of Left Lower Leg Subcutaneous Tissue and Fascia, Open Approach (ICD-10-PCS; principal; 2021-01-14 08:30)
DX: A41.9 Sepsis, unspecified organism (principal); E87.2 Acidosis; L03.116 Cellulitis of left lower limb; E11.52 Type 2 diabetes mellitus with diabetic peripheral angiopathy with gangrene; I96 Gangrene, not elsewhere classified; S91.002A Unspecified open wound, left ankle, initial encounter; S91.302A Unspecified open wound, left foot, initial encounter; Z79.899 Other long term (current) drug therapy; Z20.822 Contact with and (suspected) exposure to COVID-19; I10 Essential (primary) hypertension; E78.5 Hyperlipidemia, unspecified; R65.20 Severe sepsis without septic shock
CPT/HCPCS: 36415; 36569; 71045; 80048; 80053; 80202; 82607; 82746; 82948; 83036; 83605; 83735; 84100; 84443; 85025; 85651; 87040; 93005; 99284; J0692; J1650; J1817; J2270; J2405; J2710; J3370; J7030; J7050; U0002

== ENCOUNTER 2021-02-01 04:39 | Emergency (ER) | payer SELFPAY ==
[~2021-02-01] VITALS: Ht 167.6 cm; Wt 88.5 kg
[2021-02-01] MEDS ORDERED: HYDROCODONE/APAP 7.5MG-325MG 1 EA TAB PO ONE (05:45)
[2021-02-01] MEDS ORDERED: HYDROCODONE/APAP 7.5MG-325MG 1 EA TAB ONE (05:54)
[2021-02-01 06:24] VITALS: BP 159/96
[2021-02-01] MEDS ORDERED: HYDROCODON-ACE1 EA12 PO (06:25)
== END 2021-02-01 06:51 | disposition home or self-care (01) ==
LOC: ER 05:09
DX: S91.302A Unspecified open wound, left foot, initial encounter (principal); Z98.890 Other specified postprocedural states; I10 Essential (primary) hypertension; E11.9 Type 2 diabetes mellitus without complications; E78.5 Hyperlipidemia, unspecified
CPT/HCPCS: 99283

== ENCOUNTER 2021-02-08 22:32 | Emergency (ER) | payer OTHER ==
[~2021-02-08] VITALS: Ht 167.6 cm; Wt 88.5 kg
[~2021-02-08 22:32] MED LIST changes: +HYDROCODON-ACE1 EA12 PO
[2021-02-08] MEDS ORDERED: IBUPROFEN 600 MG TAB PO STA (23:41)
[2021-02-09] MEDS ORDERED: IBUPROFEN600 MG PO (01:10)
== END 2021-02-09 01:03 | disposition home or self-care (01) ==
LOC: ER 23:41
DX: S80.12XA Contusion of left lower leg, initial encounter (principal); W18.09XA Striking against other object with subsequent fall, initial encounter; Y93.01 Activity, walking, marching and hiking; Y99.0 Civilian activity done for income or pay; I10 Essential (primary) hypertension; E11.9 Type 2 diabetes mellitus without complications; E78.5 Hyperlipidemia, unspecified
CPT/HCPCS: 99283